=== PATIENT | male | born 2000 | race Caucasian/White ===

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

== ENCOUNTER 2022-12-10 14:46 | Emergency (ER) | payer SELFPAY | END 2022-12-10 15:20 | disposition home or self-care (01) | LOC: MADERS 14:46 | DX: B34.9 Viral infection, unspecified (principal); Z20.822 Contact with and (suspected) exposure to COVID-19; F17.210 Nicotine dependence, cigarettes, uncomplicated | CPT/HCPCS: 87804; 99283; U0003; U0005 ==

== ENCOUNTER 2022-12-31 15:18 | Emergency (ER) | payer SELFPAY ==
[2022-12-31] MEDS ORDERED: Amoxicillin/Potassium Clav 875 MG TAB ONE (16:12)
== END 2022-12-31 16:23 | disposition home or self-care (01) ==
LOC: MADERS 15:18
DX: K08.89 Other specified disorders of teeth and supporting structures (principal); F17.210 Nicotine dependence, cigarettes, uncomplicated
CPT/HCPCS: 99282